=== PATIENT | male | born 1985 | race Caucasian/White ===

== ENCOUNTER 2019-03-11 08:28 | Emergency (ER) | payer OTHER ==
[~2019-03-11] VITALS: Ht 180.3 cm; Wt 95.9 kg
[2019-03-11 08:37] VITALS: BP 118/84
[2019-03-11] MEDS ORDERED: BENZ-16 PO (09:05)
== END 2019-03-11 09:16 | disposition home or self-care (01) ==
LOC: ER 08:29
DX: J40 Bronchitis, not specified as acute or chronic (principal); Z79.899 Other long term (current) drug therapy
CPT/HCPCS: 71046; 99283